=== PATIENT | female | born 1975 | race Two or more races ===

== ENCOUNTER 2024-01-29 19:32 | Inpatient (IN) | payer MEDICAID, OTHER ==
[~2024-01-29] VITALS: Ht 160 cm; Wt 64.4 kg
[2024-01-29 20:07] LABS: Basophils # (auto) 0 10 ^3/uL (0-0.2); Basophils % (auto) 0.3 % (0.0-2.0); Eosinophils # (auto) 0 10 ^3/uL (0-0.8); Eosinophils % (auto) 0.2 % (0.0-7.0); Hematocrit 38.6 % (36.0-46.0); Hemoglobin 12.8 g/dL (12.2-16.2); Lymphocytes # (auto) 2.5 10 ^3/uL (0.4-5.4); Lymphocytes % (auto) 33.1 % (10.0-50.0); Mean Corpuscular Hemoglobin 30.3 pg (28.0-32.0); Mean Corpuscular Hgb Conc. 33.2 g/dL (32.0-36.0); Mean Corpuscular Volume 91.3 fL (80.0-100.0); Monocytes # (auto) 0.4 10 ^3/uL (0-1.3); Monocytes % (auto) 5.6 % (0.0-12.0); Neutrophils # (auto) 4.6 10 ^3/uL (1.6-8.6); Neutrophils % (auto) 60.8 % (37.0-80.0); Nucleated Red Blood Cells % 0.1 %; Platelet Count (auto) 358 10^3/uL (140-450); Red Blood Cells 4.23 10^6/uL (4.0-5.20); Red Cell Distribution Width 13.2 % (11.8-14.3); White Blood Cell 7.6 10^3/uL (4.4-10.8)
--- NOTE | 2024-01-29 20:13 | ED.PDOC ---
HPI Comments Past medical history: Past surgical history: Vitals: BP: 153/74 HR: 86 Temp: 99.3 F RR: 15 SPO2: 99% RA HPI: Poor Historian. 48-year-old female presents to emergency department for midsternal chest pain nonradiating with the associated mild shortness of breath. Onset of symptoms today. No alleviating or precipitating factors. Incidentally, patient is status post upper thoracic epidural injection on Monday by pain management for bilateral upper extremity weakness and numbness that is chronic in nature. Patient complains that since her procedure/injection she has been having some back stiffness and decreased range of motion of rotation of the upper torso. Denies any headache or photophobia or neck pain. REVIEW OF SYSTEMS: CONSTITUTIONAL: Denies acute: fever, diaphoresis, chills, generalized weakness. HEAD: Denies acute: headache, photophobia Eyes: Denies acute: Double vision, vision loss, eye pain, eye discharge. EARS: Denies acute: tinnitus, hearing loss, ear discharge, ear pain, THROAT: Denies acute: sore throat, swelling, difficulty swallowing , pain with swallowing, change in voice. NECK: Denies acute: neck pain, neck swelling, stiff neck. HEART: Denies acute : palpitations, LUNGS: Denies acute: wheezing, cough, hemoptysis ABDOMEN: Denies acute: abdominal pain, Nausea, Vomiting, diarrhea, melena , hematemesis, hematochezia SKIN: Denies acute: rash, redness, lesions, itchiness. EXTREMITIES: Denies acute: calf pain, numbness, tingling, weakness, denies pain in extremity. Denies acute: Low back pain. Neuro: Denies acute: focal neurological deficit, motor or sensory focal neurological deficit, tremors, seizure like activity, confusion, dizziness, change in mental status, loss of bowel or bladder function, cauda equina like symptoms. : Denies acute: dysuria, hematuria, flank pain, increase in urinary frequency. PSYCH: Denies acute: hallucination, suicidal ideation, homicidal ideation. FEMALE: Denies acute: abnormal vaginal bleeding, foul odor, unusual discharge. PHYSICAL EXAM: General: no acute distress, awake and alert. Head: normocephalic, atraumatic. Neck: supple, trachea is midline, no swelling. Throat: Normal phonation. Eyes:, no erythema, no purulent discharge, no proptosis, no icterus. Heart: regular rate, regular rhythm, no significant murmur appreciated. Lungs: no apparent respiratory distress, Able to speak in full sentences. No wheezing, no rhonchi, no crackles. No stridors Clear to auscultation bilaterally. Abdomen: non tender to palpation, non distended, soft, no guarding, no rebound, + bowel sounds. Neuro: Awake, Alert, oriented to name, self, situation, follows commands GCS=15. Speech is normal. Skin: no petechia, no purpura, no cyanosis, non-pale, not jaundice. Lower extremities: --no - Pitting edema no deformity, no focal swelling, no calf TTP. Makes eye contact. moves all four extremities. Face: no apparent facial droop. Ambulating in the ED independently. Chief Complaint: Chest Pain Time Seen by MD: 20:12 Reviewed Notes: Nurses Notes, Allergies Allergies: Coded Allergies: Morphine (Verified Allergy, Unknown, 01/29/24) Information Source: Patient Mode of Arrival: Ambulatory Was a procedure done? Was a procedure done?: No CP Differential Dx Differential Diagnosis: N/A Differential Diagnosis: Angina, Chest Wall Pain, Gastritis, Myocardial Infarction, Pericarditis X-Ray, Labs, Meds, VS Vital Signs Date Time Temp Pulse Resp B/P (MAP) Pulse Ox O2 Delivery O2 Flow Rate FiO2 01/29/24 23:16 80 01/29/24 21:05 82 01/29/24 19:39 99.3 86 15 153/74 (100) 99 01/29/24 19:37 88 Lab Test 01/29/24 20:42 01/29/24 19:46 Range/Units Troponin I High Sensitivity < 3 L < 3 L </=34 ng/L Triglycerides Level 98 < 150 mg/dL Cholesterol Level 164 < 200 mg/dL LDL Cholesterol 96 < 100 mg/dL HDL Cholesterol 54 40-59 mg/dL Thyroid Stimulating Hormone (TSH) 2.74 0.55-4.78 uIU/mL White Blood Count 7.6 4.4-10.8 10^3/uL Red Blood Count 4.23 4.0-5.20 10^6/uL Hemoglobin 12.8 12.2-16.2 g/dL Hematocrit 38.6 36.0-46.0 % Mean Corpuscular Volume 91.3 80.0-100.0 fL Mean Corpuscular Hemoglobin 30.3 28.0-32.0 pg Mean Corpuscular Hemoglobin Concent 33.2 32.0-36.0 g/dL Red Cell Distribution Width 13.2 11.8-14.3 % Platelet Count 358 140-450 10^3/uL Mean Platelet Volume 8.2 6.9-10.8 fL Neutrophils (%) (Auto) 60.8 37.0-80.0 % Lymphocytes (%) (Auto) 33.1 10.0-50.0 % Monocytes (%) (Auto) 5.6 0.0-12.0 % Eosinophils (%) (Auto) 0.2 0.0-7.0 % Basophils (%) (Auto) 0.3 0.0-2.0 % Neutrophils # (Auto) 4.6 1.6-8.6 10 ^3/uL Lymphocytes # (Auto) 2.5 0.4-5.4 10 ^3/uL Monocytes # (Auto) 0.4 0-1.3 10 ^3/uL Eosinophils # (Auto) 0 0-0.8 10 ^3/uL Basophils # (Auto) 0 0-0.2 10 ^3/uL Nucleated Red Blood Cells 0.1 % D-Dimer, Quantitative 0.21 0.0-0.49 mg/L FEU Sodium Level 138 136-145 mmol/L Potassium Level 3.7 3.5-5.1 mmol/L Chloride Level 102 98-107 mmol/L Carbon Dioxide Level 29 20-31 mmol/L Anion Gap 7 5-15 Blood Urea Nitrogen 19 9-23 mg/dL Creatinine 0.80 0.550-1.02 mg/dL Glomerular Filtration Rate Calc 91 >90 mL/min BUN/Creatinine Ratio 23.8 H 10.0-20.0 Serum Glucose 175 H 74-106 mg/dL Hemoglobin A1c 6.2 H <5.7 % A1C Calcium Level 11.0 H 8.7-10.4 mg/dL Total Bilirubin 0.3 0.2-1.0 mg/dL Aspartate Amino Transferase (AST) 10 L 13-40 U/L Alanine Aminotransferase (ALT) 17 7-40 U/L Alkaline Phosphatase 68 46-116 U/L Total Protein 7.8 5.7-8.2 g/dL Albumin 5.1 H 3.2-4.8 g/dL Beta HCG, Quantitative 2.0 1.5-4.2 mIU/mL [address] [address] Ph: [phone] DIAGNOSTIC IMAGING Diagnostic Imaging Report : [id number] Signed PATIENT: QUYNH NATION ACCT: [id number] UNIT: [id number] : 1975 LOC: ER ROOM / BED: / AGE / SEX: 48 / F ADM STATUS: REG ER SERVICE 40 ORDERING PHYSICIAN: ALIN JUAREZ DO PROCEDURE(s): CXRP - CHEST PORTABLE REASON: cp/ ORDER NUMBER(s): [id number], ACCESSION NUMBER(s): [id number] EXAM: XY CHEST PORTABLE TECHNIQUE: Single frontal chest radiograph CLINICAL HISTORY: cp/ COMPARISON: None Findings/Impression: Frontal chest radiograph demonstrates no acute osseous or superficial soft tissue abnormalities. The trachea is midline. The cardiac silhouette and mediastinum are within normal limits. No pneumothorax, pleural effusions, or consolidations. ATED BY: LEYLA MEDRANO DO DICTATED DATE/TIME: 01/29/242053 SIGNED BY: LEYLA MEDRANO DO SIGNED DATE/TIME: 01/29/242053 CC: [place] [id number] Ph: [phone] DIAGNOSTIC IMAGING Diagnostic Imaging Report : [id number] Signed PATIENT: EMMETT NATIONCCT: [id number] UNIT: [id number] : 1975 LOC: ER ROOM / BED: / AGE / SEX: 48 / F ADM STATUS: REG ER SERVICE 58 ORDERING PHYSICIAN: ALIN JUAREZ DO PROCEDURE(s): TS1CT - CT T SPINE WITH CONTRAST REASON: post epidural pain ORDER NUMBER(s): [id number], ACCESSION NUMBER(s): [id number] CT OF THE THORACIC SPINE WITH CONTRAST HISTORY: post epidural pain COMPARISON: None TECHNIQUE: Axial images through the thoracic spine were obtained with intravenous contrast. Coronal and sagittal reformats were obtained. One or more of the following radiation dose reduction techniques were used for this examination: automated exposure control, adjustment of the mA and/or kV according to patient size, use of iterative reconstruction technique. Findings and impression: No grossly displaced fractures, subluxations or bony destructive changes identified. The bony spinal canal is grossly patent. Vertebral body heights appear maintained. Alignment is relatively preserved. Perivertebral soft tissues appear within normal limits. If there is persistent clinical concern, MRI may be obtained to further evaluate. ATED BY: JAGDISH WOLFF MD DICTATED DATE/TIME: 01/29/242306 SIGNED BY: JAGDISH WOLFF MD SIGNED DATE/TIME: 01/29/242306 Time of 1ST Reevaluation: 20:12 Reevaluation 1ST: Unchanged Patient Education/Counseling: Diagnosis, Treatment, Prognosis Family Education/Counseling: No Family Present Departure 1 Departure Time of Disposition: 22:36 Impression: Primary Impression: Chest pain Disposition: ADMITTED INPATIENT Admit to: [facility] Condition: Guarded Discharged With: Self Critical Care Note Critical Care Time?: No I personally scribed for ALIN JUAREZ DO ([email or web address]) on 01/29/24 at 20:13. Electronically submitted by Christal Brown ([facility]). I personally scribed for ALIN JUAREZ DO ([email or web address]) on 01/29/24 at 21:58. Electronically submitted by Christal Brown ([facility]). I personally scribed for ALIN JUAREZ DO ([email or web address]) on 01/30/24 at 02:35. Electronically submitted by Rafael Parekh ([email or web address]). ALIN JUAREZ DO Jan 29, 2024 20:13
[2024-01-29 20:27] LABS: Alanine Aminotransferase 17 U/L (7-40); Alkaline Phosphatase 68 U/L (46-116); Anion Gap 7 (5-15); BUN/Creatinine Ratio 23.8 (10.0-20.0); Blood Urea Nitrogen 19 mg/dL (9-23); Carbon Dioxide 29 mmol/L (20-31); Chloride 102 mmol/L (98-107); Potassium 3.7 mmol/L (3.5-5.1); Sodium 138 mmol/L (136-145); Total Protein 7.8 g/dL (5.7-8.2)
[2024-01-29 20:30] LABS: Albumin 5.1 g/dL (3.2-4.8); Aspartate Aminotransferase 10 U/L (13-40); Bilirubin, Total 0.3 mg/dL (0.2-1.0); Glucose 175 mg/dL (74-106)
--- NOTE | 2024-01-29 20:56 | DVH ---
EXAM: XY CHEST PORTABLE TECHNIQUE: Single frontal chest radiograph CLINICAL HISTORY: cp/ COMPARISON: None Findings/Impression: Frontal chest radiograph demonstrates no acute osseous or superficial soft tissue abnormalities. The trachea is midline. The cardiac silhouette and mediastinum are within normal limits. No pneumothorax, pleural effusions, or consolidations.
--- NOTE | 2024-01-29 23:10 | DVH ---
CT OF THE THORACIC SPINE WITH CONTRAST HISTORY: post epidural pain COMPARISON: None TECHNIQUE: Axial images through the thoracic spine were obtained with intravenous contrast. Coronal a nd sagittal reformats were obtained. One or more of the following radiation dose reduction techniques were used for this examination: automated exposure control, adjustment of the mA and/or kV according to patient size, use of iterative reconstruction technique. Findings and impression: No grossly displaced fractures, subluxations or bony destructive changes identified. The bony spinal canal is grossly patent. Vertebral body heights appear maintained. Alignment is relatively preserve d. Perivertebral soft tissues appear within normal limits. If there is persistent clinical concern, MRI may be obtained to further evaluate.
[2024-01-30] MEDS: ACETAMINOPHEN 325 MG TAB PO ONE (00:45)
[2024-01-30] MEDS ORDERED: DEXTROSE (50%) 50ML SYRG IV PRN (00:45)
[2024-01-30] MEDS: ASPirin 81 mg TAB PO ONE (00:45)
--- NOTE | 2024-01-30 00:56 | DVHHPRES ---
History of Present Illness Resident Creating Document: JOSE HONEYCUTT RESIDENT History of Present Illness Patient is a 48 y/o female with a past medical history of T2DM, hypertriglyceridemia, carpel tunnel syndrome came to the ED with the chief complaint of chest pain and neck stiffness. Patient reported that yesterday she went for a walk and started to have chest pain, substernal, pressure like in character with episodes of sharp stabbing pain, exacerbated with walking and relieved on rest, radiation to left arm, took motrin after which the patient had some relief, associated with shortness of breath, but denied palpitations, no association with taking deep breath or movement. Patient reports that on Monday she got an epidural injection in the pain management clinic because of neuropathic pain and numbness in her hands (h/o carpal tunnel syndrome) following which she had neck stiffness and pain going down from her neck to hands and complete numbness with no sensation which eventually improved but her neck is still stiff and has pain on movement. No weakness in legs, no dizziness, no loss of consciousness. Past medical history: Type 2 diabetes mellitus, hypertriglyceridemia, carpal tunnel syndrome Past Surgical history: Surgery for carpal tunnel syndrome on both hands, emergency laparotomy for ectopic , hysterectomy, appendectomy Social history: Patient denies smoking, alcohol, drug use Home medication: metformin 500mg b.i.d., fenofibrate 160 mg once daily, simvastatin 10 mg once daily, rybelsus 7mg once daily, amytryptiline 10mg once daily, pregababalin 75mg once daily Family History: None Review of Systems Review of Systems Patient is seen and examined at bedside Alert and oriented to time, place and person Has neck stiffness with pain on movement in all directions and decreased ROM reports that she feels mild chest discomfort no shortness of breath She complains of a headache 6-7/10 in intensity denies nausea, vomiting, blurry vision, dizziness Allergies: Coded Allergies: Morphine (Verified Allergy, Unknown, 01/29/24) Medications Current Medications Medications Dose Ordered Sig/Jennifer Route Start Time Stop Time Status Last Admin Dose Admin Diagnostic Test (Pha) 1 strip ACHS 01/30/24 07:00 UNV Insulin Human Regular ACHS SC 01/30/24 07:00 UNV Dextrose 50 ml UD PRN IV 01/30/24 00:45 UNV Exam Vital Signs Vital Signs Date Time Temp Pulse Resp B/P (MAP) Pulse Ox O2 Delivery O2 Flow Rate FiO2 01/29/24 23:16 80 01/29/24 19:39 99.3 15 153/74 (100) 99 Exam Physical Examination Gen - no pallor, no icterus, no cyanosis, no clubbing, no LAD, no edema Skin - Patients skin is warm and dry. HEENT - normocephalic, atraumatic, dry mucous membranes. Neck - ROM decreased in all directions, no LAD, no JVD Pulmonary - B/L vesicular breath sounds , no crackles, no wheezing. cardiovascular - normal S1,S2 heard. no murmurs heard. peripheral pulses normal radial 2+, pedal 2+. GI - soft abdomen. no tenderness. no hepatospleenomegaly. Bowel sounds normoactive Neurological - Patient is A/O X 3. Bilateral upper extremity strength 4/5, bilateral lower extremity strength 5/5, no facial droop, normal speech, no tremor, no sensory deficits Extremities- Not able to lift arms above 90degrees Labs/Xrays Labs Test 01/29/24 20:42 01/29/24 19:46 Range/Units Troponin I High Sensitivity < 3 L </=34 ng/L White Blood Count 7.6 4.4-10.8 10^3/uL Red Blood Count 4.23 4.0-5.20 10^6/uL Hemoglobin 12.8 12.2-16.2 g/dL Hematocrit 38.6 36.0-46.0 % Mean Corpuscular Volume 91.3 80.0-100.0 fL Mean Corpuscular Hemoglobin 30.3 28.0-32.0 pg Mean Corpuscular Hemoglobin Concent 33.2 32.0-36.0 g/dL Red Cell Distribution Width 13.2 11.8-14.3 % Platelet Count 358 140-450 10^3/uL Mean Platelet Volume 8.2 6.9-10.8 fL Neutrophils (%) (Auto) 60.8 37.0-80.0 % Lymphocytes (%) (Auto) 33.1 10.0-50.0 % Monocytes (%) (Auto) 5.6 0.0-12.0 % Eosinophils (%) (Auto) 0.2 0.0-7.0 % Basophils (%) (Auto) 0.3 0.0-2.0 % Neutrophils # (Auto) 4.6 1.6-8.6 10 ^3/uL Lymphocytes # (Auto) 2.5 0.4-5.4 10 ^3/uL Monocytes # (Auto) 0.4 0-1.3 10 ^3/uL Eosinophils # (Auto) 0 0-0.8 10 ^3/uL Basophils # (Auto) 0 0-0.2 10 ^3/uL Nucleated Red Blood Cells 0.1 % D-Dimer, Quantitative 0.21 0.0-0.49 mg/L FEU Sodium Level 138 136-145 mmol/L Potassium Level 3.7 3.5-5.1 mmol/L Chloride Level 102 98-107 mmol/L Carbon Dioxide Level 29 20-31 mmol/L Anion Gap 7 5-15 Blood Urea Nitrogen 19 9-23 mg/dL Creatinine 0.80 0.550-1.02 mg/dL Glomerular Filtration Rate Calc 91 >90 mL/min BUN/Creatinine Ratio 23.8 H 10.0-20.0 Serum Glucose 175 H 74-106 mg/dL Calcium Level 11.0 H 8.7-10.4 mg/dL Total Bilirubin 0.3 0.2-1.0 mg/dL Aspartate Amino Transferase (AST) 10 L 13-40 U/L Alanine Aminotransferase (ALT) 17 7-40 U/L Alkaline Phosphatase 68 46-116 U/L Total Protein 7.8 5.7-8.2 g/dL Albumin 5.1 H 3.2-4.8 g/dL Beta HCG, Quantitative 2.0 1.5-4.2 mIU/mL Assessment/Plan Assessment/Plan Assessment and Plan # Acute Chest Pain # r/o ACS # ?Costochondritis # GERD - 12 lead EKG shows sinus rhythm , no acute ST changes - Troponin levels under normal limits - Aspirin 81 mg daily - atorvastatin 40mg daily - famotidine 20 mg IV - nitroglycerin prn for chest pain - norco prn for pain # Neck pain, r/o cervical radiculopathy # H/o Carpel tunnel syndrome s/p surgery both hands - H/o epidural analgesia 3 days ago - CT Thoracic spine with contrast shows no grossly displaced fractures, subluxations or bony destructive changes identified. The bony spinal canal is grossly patent. Vertebral body heights appear maintained. Alignment is relatively preserved. Perivertebral soft tissues appear within normal limits. - continued pregabalin 75mg qd # Uncontrolled T2DM - on Mild ISS # H/o dyslipidemia - on atorvastatin 40 mg hs # Hypercalcemia, mild - Serum PTH pending Goals of care discusses with the patient for over 25 mins. Plan discussed with Plan discussed with: Patient My Orders Orders - JOSE HONEYCUTT Procedure Category Date Status Time Drug Screen LAB 01/30/24 Logged 00:31 Hemoglobin A1c LAB 01/30/24 Logged 00:31 Lipid Panel LAB 01/30/24 Logged 00:31 Thyroid Stimulating LAB 01/30/24 Logged Hormone 00:31 Covid19 Antigen Samina LAB 01/30/24 Logged Rapid Influenza A&B LAB 01/30/24 Logged 00:31 Famotidine Injection PHA 01/30/24 Logged (Pepcid Injection) 00:45 Aspirin Tablet PHA 01/30/24 Logged 00:45 Glucose Blood PHA 01/30/24 Logged (Accu-Chek Comfort 07:00 Insulin R (Human) PHA 01/30/24 Logged (Insulin R) 07:00 Dextrose 50% Syringe PHA 01/30/24 Logged 00:45 Consistent DIET 01/30/24 Transmitted Carb(Ccho)Diabetes Breakfast Atorvastatin (Lipitor) PHA 01/30/24 Logged 00:45 Pregabalin Capsule PHA 01/30/24 Logged (Lyrica Capsule) 00:45 Acetaminophen Tablet PHA 01/30/24 Logged (Tylenol Tablet) 00:45 Date of Service: Jan 30, 2024 Billing Provider: THOMAS MARTINEZ MD Common Visit Codes: 84506-[id number] INP/OBS CARE (HIGH) JOSE HONEYCUTT RESIDENT Jan 30, 2024 00:56 THOMAS MARTINEZ MD Jan 30, 2024 19:22
[2024-01-30] MEDS ORDERED: NITROGLYCERIN 0.4 MG SL TAB SL PRN (01:00)
[2024-01-30 01:44] LABS: Triglycerides 98 mg/dL (< 150)
[2024-01-30 01:45] LABS: LDL Cholesterol 96 mg/dL (< 100)
[2024-01-30 01:46] LABS: Cholesterol 164 mg/dL (< 200); HDL Cholesterol 54 mg/dL (40-59)
[2024-01-30] MEDS: HYDROcodone-ACET 5/325MG TAB PO ONE (01:49)
[2024-01-30] MEDS: IOHEXOL 300 MG/ML 100ML BOTTLE IJ ONE (01:59)
[2024-01-30 02:35] VITALS: PULSE 75; RESP 16; O2SAT 98
[2024-01-30] MEDS: ATORVASTATIN 20 MG TAB PO ONE (02:40)
[2024-01-30] MEDS: FAMOTIDINE (10MG/ML) 2ML VL IV ONE (02:40)
[2024-01-30] MEDS: PREGABALIN CAPSULE 75 MG CAP PO ONE (02:40)
--- NOTE | 2024-01-30 02:59 | ECG ---
[facility] Test Date: 2024-01-29 Test Time: 21:05:36 Pat Name: QUYNH BOLANOS Department: ED Room: 0282T Gender: F Customer Account Representative: SWATHI : 1975 Requested By: ALIN JUAREZ Order Number: [id number] Reading MD: Chandra Wilkins Measurements Intervals [place] Rate: 82 P: 63 [place]: 175 QRS: 41 QRSD: 87 T: 49 QT: 370 QTc: 432 Interpretive Statements Sinus rhythm Electronically Signed On 02-02-2024 10:21:51 PST by Chandra Wilkins Please click the below link to view image of tracing.
--- NOTE | 2024-01-30 03:00 | ECG ---
[facility] Test Date: 2024-01-29 Test Time: 23:16:33 Pat Name: QUYNH BOLANOS Department: ER Room: 0282T Gender: F Ophthalmic Surgeon: SWATHI : 1975 Requested By: ALIN JUAREZ Order Number: [id number] Reading MD: Chandra Wilkins Measurements Intervals [place] Rate: 80 P: 41 [place]: 178 QRS: 23 QRSD: 86 T: 41 QT: 374 QTc: 432 Interpretive Statements Sinus rhythm Electronically Signed On 02-02-2024 10:22:09 PST by Chandra Wilkins Please click the below link to view image of tracing.
[2024-01-30 05:20] LABS: COVID19 ANTIGEN SOFIA FIA NEGATIVE (NEGATIVE); Rapid Influenza A Negative (Negative)
[2024-01-30 05:21] LABS: Rapid Influenza B Positive (Negative)
[2024-01-30 05:47] LABS: Opiate Scree,Urine Neg (NEGATIVE)
[2024-01-30 05:51] LABS: Amphetamine Screen, Urine Neg (NEGATIVE); Barbiturate Scree,Urine Neg (NEGATIVE); Benzodiazephine Screen, Urine Neg (NEGATIVE); Cannabinoid Screen, Urine Neg (NEGATIVE); Cocaine Screen, Urine Neg (NEGATIVE); Phencyclidine Screen, Urine Neg (NEGATIVE)
[2024-01-30 05:58] LABS: Urine Bacteria FEW /hpf (None Seen); Urine Blood Negative /uL (Negative); Urine Clarity Clear (Clear); Urine Color Yellow (Yellow); Urine Mucus FEW (None Seen); Urine Protein, UAD TRACE (Negative); Urine Urobilinogen Normal (Negative); Urine WBC 4 /hpf (0 - 5)
[2024-01-30] MEDS ORDERED: ACETAMINOPHEN 325 MG TAB PO SCH (06:00)
[2024-01-30 06:11] LABS: Chloride 103 mmol/L (98-107); Sodium 137 mmol/L (136-145)
[2024-01-30 06:12] LABS: Anion Gap 7 (5-15); Calcium 10.2 mg/dL (8.7-10.4); Carbon Dioxide 27 mmol/L (20-31)
[2024-01-30 06:17] LABS: BUN/Creatinine Ratio 23.9 (10.0-20.0); Blood Urea Nitrogen 17 mg/dL (9-23)
[2024-01-30 06:30] LABS: Glucose 139 mg/dL (74-106)
[2024-01-30] MEDS: ACCU-CHEK COMFORT CURVE STRIP VI SCH (06:39)
[2024-01-30] MEDS: InsuLIN REG 1unit/0.01ml Soln (100units/ml) SC SCH ×2 (06:40→17:29)
[2024-01-30 07:17] LABS: Urine Specific Gravity > 1.035 (1.001-1.035)
[2024-01-30] MEDS: MORPHINE SULFATE INJ 2 MG/ml SYRG IV PRN (07:55)
[2024-01-30] MEDS ORDERED: ACETAMINOPHEN 325 MG TAB PO PRN (08:00)
[2024-01-30] MEDS: HYDROcodone-ACET 5/325MG TAB PO PRN (08:02)
[2024-01-30 08:07] VITALS: PULSE 74; RESP 15; O2SAT 98
[2024-01-30] MEDS: ASPirin 81 mg TAB PO SCH (09:47)
[2024-01-30] MEDS: PREGABALIN CAPSULE 75 MG CAP PO SCH (09:47)
[2024-01-30] MEDS: OSELTAMIVIR 75 MG CAP PO SCH (09:48)
[2024-01-30] MEDS ORDERED: ATORVASTATIN 20 MG TAB PO SCH (10:00)
--- NOTE | 2024-01-30 10:41 | DVHCONRES ---
Date Seen: Jan 30, 2024 Resident Creating Document: YOSHI LOBO RESIDENT Allergies: Coded Allergies: Morphine (Verified Allergy, Unknown, 01/29/24) Current Medications Current Medications Medications (Trade) Dose Ordered Sig/Jennifer Route PRN Reason Start Time Stop Time Status Last Admin Diagnostic Test (Pha) (Accu-Chek Comfort Curve T) 1 strip ACHS 01/30/24 07:00 01/30/24 06:39 Insulin Human Regular (InsuLIN R) ACHS SC 01/30/24 07:00 01/30/24 06:40 Dextrose 50 ml UD PRN IV Blood Sugar LESS THAN 60 01/30/24 00:45 Nitroglycerin (Ntrostat Sublingual) 0.4 mg Q5MINP PRN SL FOR CHEST PAIN 01/30/24 01:00 Morphine Sulfate 2 mg Q30M PRN IV FOR CHEST PAIN 01/30/24 01:00 Aspirin 81 mg DAILY PO 01/30/24 10:00 01/30/24 09:47 Atorvastatin Calcium (Lipitor) 40 mg DAILY PO 01/30/24 10:00 01/30/24 02:15 DC Acetaminophen/ Hydrocodone Bitart ([place] 5/325MG Tab) 1 tab Q6HP PRN PO MODERATE PAIN (4-6 PAIN SCALE) 01/30/24 06:00 01/30/24 08:02 Acetaminophen (Tylenol Tablet) 650 mg Q6HPRN PO 01/30/24 06:00 01/30/24 07:47 DC Pregabalin (Lyrica Capsule) 75 mg DAILY PO 01/30/24 10:00 01/30/24 09:47 Atorvastatin Calcium (Lipitor) 40 mg HS PO 01/30/24 22:00 Oseltamivir Phosphate (Tamiflu 75MG Capsule) 75 mg Q12HR PO 01/30/24 10:00 02/04/24 09:59 01/30/24 09:48 Acetaminophen (Tylenol Tablet) 650 mg Q6HPRN PRN PO MILD PAIN (1-3 PAIN SCALE) 01/30/24 08:00 Vital Signs Vital Signs Date Time Temp Pulse Resp B/P (MAP) Pulse Ox O2 Delivery O2 Flow Rate FiO2 01/30/24 10:00 81 14 144/85 (104) 98 01/30/24 08:07 Room Air* 0 21 01/30/24 08:06 97.8 97.8 Labs/Diagnostic Data Labs Test 01/30/24 05:30 01/30/24 04:15 01/29/24 20:42 01/29/24 19:46 Range/Units Sodium Level 137 136-145 mmol/L Potassium Level 4.0 3.5-5.1 mmol/L Chloride Level 103 98-107 mmol/L Carbon Dioxide Level 27 20-31 mmol/L Anion Gap 7 5-15 Blood Urea Nitrogen 17 9-23 mg/dL Creatinine 0.71 0.550-1.02 mg/dL Glomerular Filtration Rate Calc 105 >90 mL/min BUN/Creatinine Ratio 23.9 H 10.0-20.0 Serum Glucose 139 H 74-106 mg/dL Calcium Level 10.2 8.7-10.4 mg/dL Parathyroid Hormone (Intact) 27.5 18.4-80.1 pg/mL Urine Color Yellow Yellow Urine Clarity Clear Clear Urine pH 6.0 5.0-9.0 Urine Specific [place] > 1.035 H 1.001-1.035 Urine Protein Trace H Negative Urine Ketones Negative Negative Urine Blood Negative Negative /uL Urine Nitrite Negative Negative Urine Bilirubin Negative Negative Urine Urobilinogen Normal Negative mg/dL Urine Leukocyte Esterase Negative Negative /uL Urine RBC 4 0 - 4 /hpf Urine WBC 4 0 - 5 /hpf Urine Squamous Epithelial Cells Mod <5 /hpf Urine Bacteria Few H None Seen /hpf Urine Mucus Few None Seen Urine Glucose Normal Normal mg/dL Urine Opiates Screen Neg NEGATIVE Urine Fentanyl Screen Neg NEGATIVE Urine Barbiturates Screen Neg NEGATIVE Urine Phencyclidine Screen Neg NEGATIVE Urine Amphetamines Screen Neg NEGATIVE Urine Benzodiazepines Screen Neg NEGATIVE Urine Cocaine Screen Neg NEGATIVE Urine Cannabinoids Screen Neg NEGATIVE Influenza Type A Antigen Negative Negative Influenza Type B Antigen Positive Negative SARS-CoV-2 Antigen (Rapid) Negative NEGATIVE Troponin I High Sensitivity < 3 L </=34 ng/L Triglycerides Level 98 < 150 mg/dL Cholesterol Level 164 < 200 mg/dL LDL Cholesterol 96 < 100 mg/dL HDL Cholesterol 54 40-59 mg/dL Thyroid Stimulating Hormone (TSH) 2.74 0.55-4.78 uIU/mL White Blood Count 7.6 4.4-10.8 10^3/uL Red Blood Count 4.23 4.0-5.20 10^6/uL Hemoglobin 12.8 12.2-16.2 g/dL Hematocrit 38.6 36.0-46.0 % Mean Corpuscular Volume 91.3 80.0-100.0 fL Mean Corpuscular Hemoglobin 30.3 28.0-32.0 pg Mean Corpuscular Hemoglobin Concent 33.2 32.0-36.0 g/dL Red Cell Distribution Width 13.2 11.8-14.3 % Platelet Count 358 140-450 10^3/uL Mean Platelet Volume 8.2 6.9-10.8 fL Neutrophils (%) (Auto) 60.8 37.0-80.0 % Lymphocytes (%) (Auto) 33.1 10.0-50.0 % Monocytes (%) (Auto) 5.6 0.0-12.0 % Eosinophils (%) (Auto) 0.2 0.0-7.0 % Basophils (%) (Auto) 0.3 0.0-2.0 % Neutrophils # (Auto) 4.6 1.6-8.6 10 ^3/uL Lymphocytes # (Auto) 2.5 0.4-5.4 10 ^3/uL Monocytes # (Auto) 0.4 0-1.3 10 ^3/uL Eosinophils # (Auto) 0 0-0.8 10 ^3/uL Basophils # (Auto) 0 0-0.2 10 ^3/uL Nucleated Red Blood Cells 0.1 % D-Dimer, Quantitative 0.21 0.0-0.49 mg/L FEU Hemoglobin A1c 6.2 H <5.7 % A1C Total Bilirubin 0.3 0.2-1.0 mg/dL Aspartate Amino Transferase (AST) 10 L 13-40 U/L Alanine Aminotransferase (ALT) 17 7-40 U/L Alkaline Phosphatase 68 46-116 U/L Total Protein 7.8 5.7-8.2 g/dL Albumin 5.1 H 3.2-4.8 g/dL Beta HCG, Quantitative 2.0 1.5-4.2 mIU/mL YOSHI LOBO RESIDENT Jan 30, 2024 10:41
--- NOTE | 2024-01-30 10:44 | ECG ---
[facility] Test Date: 2024-01-29 Test Time: 19:37:21 Pat Name: QUYNH BOLANOS Department: ER Room: 0282T Gender: F Team Assistant: MARKO : 1975 Requested By: ALIN JUAREZ Order Number: [id number] Reading MD: Chandra Wilkins Measurements Intervals [place] Rate: 88 P: 61 [place]: 173 QRS: 58 QRSD: 85 T: 43 QT: 353 QTc: 427 Interpretive Statements Sinus rhythm Baseline wander in lead(s) II,III,aVR,aVL,aVF,V2,V5,V6 Electronically Signed On 02-02-2024 10:19:28 PST by Chandra Wilkins Please click the below link to view image of tracing.
[2024-01-30 11:58] LABS: Triglycerides 91 mg/dL (< 150)
[2024-01-30 11:59] LABS: LDL Cholesterol 93 mg/dL (< 100)
[2024-01-30 12:00] LABS: Cholesterol 155 mg/dL (< 200); HDL Cholesterol 52 mg/dL (40-59)
--- NOTE | 2024-01-30 14:18 | DVHSR ---
APPROVED REPORT EXAM: Two-dimensional and M-mode echocardiogram with Doppler and color Doppler. Blood Pressure: 144/85 mmHg INDICATION Chest Pain RISK FACTORS Height: 63, Weight: 153 DIMENSIONS LVDd4.3 (3.8-5.7cm)LA (2D)3.4 (1.9-4.0cm)Aortic Root2.9 (2.0-3.7cm) LVDs2.9 (2.5-4.0cm)LA (MM) (1.9-4.0cm)Aortic Cusp Exc1.7 (1.5-2.0cm) EF (%) 60.0 (55-70%)Rt. Atrium3.7 (1.9-4.0cm)Asc. Aorta cm IVSd1.0 (0.7-1.1cm)RV (D) (1.8-2.4cm) PWd1.1 (0.7-1.1cm) Mitral Valve MitralMitral Stenosis E wave0.81m/sMV Mean GR.mmHg A wave0.83m/sMV Peak GR.44mmHg E/A ratio1.02D MVAcm2 DECEL [id number] 1/2 [id number] IVRTmsDop MVA3.91cm2 Aortic Valve Aortic ValveAortic Stenosis V11.18m/Sofiya Mean GR.4mmHg V21.44m/Sofiya Peak GR.8mmHg LVOT Diameter2.0 (1.8-2.4cm)Doppler AVA2.57cm2 Pulmonic Valve V21.02m/s Conclusion Normal left ventricular size and dimension. Normal left ventricular systolic function estimated ejec tion fraction 55%. There is a grade 1 diastolic dysfunction. Normal right ventricular size and dimension. Normal right ventricular systolic function. Normal biatrial size and dimension. Normal aortic valve structure and function. Normal mitral valve structure and function Normal tricuspid valve structure and function. The pulmonary valve is grossly normal. No pericardial effusion.
--- NOTE | 2024-01-30 14:49 | DVHCONRES ---
Date Seen: Jan 30, 2024 Resident Creating Document: YOSHI LOBO RESIDENT Reason for Consultation Chest pain History of Present Illness QUYNH NATION is a 48-year-old female with PMH of type 2 DM, hypertriglyceridemia, carpal tunnel syndrome presented to the ED with the chief complaints of difficulty breathing and chest pain since Monday. Patient reported while walking patient developed chest pressure, substernal, 9/10 intensity, intermittent, radiating to left arm, aggravated by walking and living by rest associated with shortness. Patient reported she denies pain like this before. On my assessment patient denies fever, palpitations, diaphoresis, dizziness, and other acute associated symptoms. Past Medical History Type 2 DM, hypertriglyceridemia, carpal tunnels Past Surgical History Surgery for carpal tunnel syndrome on both hands, emergency laparotomy for ectopic , hysterectomy, appendectomy Family History Reviewed, noncontributory Social History Lives with family. Patient denies smoking, alcohol, drug use Allergies: Coded Allergies: Morphine (Verified Allergy, Unknown, 01/29/24) Current Medications Current Medications Medications (Trade) Dose Ordered Sig/Jenniefr Route PRN Reason Start Time Stop Time Status Last Admin Diagnostic Test (Pha) (Accu-Chek Comfort Curve T) 1 strip ACHS 01/30/24 07:00 01/30/24 11:49 Insulin Human Regular (InsuLIN R) ACHS SC 01/30/24 07:00 01/30/24 12:15 Dextrose 50 ml UD PRN IV Blood Sugar LESS THAN 60 01/30/24 00:45 Nitroglycerin (Ntrostat Sublingual) 0.4 mg Q5MINP PRN SL FOR CHEST PAIN 01/30/24 01:00 Morphine Sulfate 2 mg Q30M PRN IV FOR CHEST PAIN 01/30/24 01:00 Aspirin 81 mg DAILY PO 01/30/24 10:00 01/30/24 09:47 Atorvastatin Calcium (Lipitor) 40 mg DAILY PO 01/30/24 10:00 01/30/24 02:15 DC Acetaminophen/ Hydrocodone Bitart (Jackson 5/325MG Tab) 1 tab Q6HP PRN PO MODERATE PAIN (4-6 PAIN SCALE) 01/30/24 06:00 01/30/24 08:02 Acetaminophen (Tylenol Tablet) 650 mg Q6HPRN PO 01/30/24 06:00 01/30/24 07:47 DC Pregabalin (Lyrica Capsule) 75 mg DAILY PO 01/30/24 10:00 01/30/24 09:47 Atorvastatin Calcium (Lipitor) 40 mg HS PO 01/30/24 22:00 Oseltamivir Phosphate (Tamiflu 75MG Capsule) 75 mg Q12HR PO 01/30/24 10:00 02/04/24 09:59 01/30/24 09:48 Acetaminophen (Tylenol Tablet) 650 mg Q6HPRN PRN PO MILD PAIN (1-3 PAIN SCALE) 01/30/24 08:00 Review of Systems Patient seen and examined at the bedside. Patient reported improvement in her chest pain and difficulty breathing. Vital Signs Vital Signs Date Time Temp Pulse Resp B/P (MAP) Pulse Ox O2 Delivery O2 Flow Rate FiO2 01/30/24 14:00 83 20 127/70 (89) 97 01/30/24 08:07 Room Air* 0 21 01/30/24 08:06 97.8 97.8 Physical Exam General Appearance: Alert, Oriented X3, Cooperative, Mild distress HEENT: Atraumatic, Mucous membranes moist/pink Respiratory: Clear to auscultation, Normal air movement, No added sounds Cardiovascular: Regular rate, Normal S1, Normal S2, No murmurs Abdominal: Active bowel sounds, Soft, no distention, no tenderness Extremities: No edema, Normal pulses, No tenderness/swelling Skin: No Significant rash, except past surgical scars Neuro: Normal speech, sensorimotor deficits none Psych/Mental Status: Mental status NL, Mood NL Nurse was there as sharperone during examination Labs/Diagnostic Data Labs Test 01/30/24 11:46 01/30/24 05:30 01/30/24 04:15 01/29/24 20:42 Range/Units POC Glucose 232 H 70-106 mg/dl Sodium Level 137 136-145 mmol/L Potassium Level 4.0 3.5-5.1 mmol/L Chloride Level 103 98-107 mmol/L Carbon Dioxide Level 27 20-31 mmol/L Anion Gap 7 5-15 Blood Urea Nitrogen 17 9-23 mg/dL Creatinine 0.71 0.550-1.02 mg/dL Glomerular Filtration Rate Calc 105 >90 mL/min BUN/Creatinine Ratio 23.9 H 10.0-20.0 Serum Glucose 139 H 74-106 mg/dL Calcium Level 10.2 8.7-10.4 mg/dL Magnesium Level 2.1 1.6-2.6 mg/dL B-Type Natriuretic Peptide 8.38 0-100 pg/mL Triglycerides Level 91 < 150 mg/dL Cholesterol Level 155 < 200 mg/dL LDL Cholesterol 93 < 100 mg/dL HDL Cholesterol 52 40-59 mg/dL Parathyroid Hormone (Intact) 27.5 18.4-80.1 pg/mL Urine Color Yellow Yellow Urine Clarity Clear Clear Urine pH 6.0 5.0-9.0 Urine Specific [place] > 1.035 H 1.001-1.035 Urine Protein Trace H Negative Urine Ketones Negative Negative Urine Blood Negative Negative /uL Urine Nitrite Negative Negative Urine Bilirubin Negative Negative Urine Urobilinogen Normal Negative mg/dL Urine Leukocyte Esterase Negative Negative /uL Urine RBC 4 0 - 4 /hpf Urine WBC 4 0 - 5 /hpf Urine Squamous Epithelial Cells Mod <5 /hpf Urine Bacteria Few H None Seen /hpf Urine Mucus Few None Seen Urine Glucose Normal Normal mg/dL Urine Opiates Screen Neg NEGATIVE Urine Fentanyl Screen Neg NEGATIVE Urine Barbiturates Screen Neg NEGATIVE Urine Phencyclidine Screen Neg NEGATIVE Urine Amphetamines Screen Neg NEGATIVE Urine Benzodiazepines Screen Neg NEGATIVE Urine Cocaine Screen Neg NEGATIVE Urine Cannabinoids Screen Neg NEGATIVE Influenza Type A Antigen Negative Negative Influenza Type B Antigen Positive Negative SARS-CoV-2 Antigen (Rapid) Negative NEGATIVE Troponin I High Sensitivity < 3 L </=34 ng/L Thyroid Stimulating Hormone (TSH) 2.74 0.55-4.78 uIU/mL Test 01/29/24 19:46 Range/Units White Blood Count 7.6 4.4-10.8 10^3/uL Red Blood Count 4.23 4.0-5.20 10^6/uL Hemoglobin 12.8 12.2-16.2 g/dL Hematocrit 38.6 36.0-46.0 % Mean Corpuscular Volume 91.3 80.0-100.0 fL Mean Corpuscular Hemoglobin 30.3 28.0-32.0 pg Mean Corpuscular Hemoglobin Concent 33.2 32.0-36.0 g/dL Red Cell Distribution Width 13.2 11.8-14.3 % Platelet Count 358 140-450 10^3/uL Mean Platelet Volume 8.2 6.9-10.8 fL Neutrophils (%) (Auto) 60.8 37.0-80.0 % Lymphocytes (%) (Auto) 33.1 10.0-50.0 % Monocytes (%) (Auto) 5.6 0.0-12.0 % Eosinophils (%) (Auto) 0.2 0.0-7.0 % Basophils (%) (Auto) 0.3 0.0-2.0 % Neutrophils # (Auto) 4.6 1.6-8.6 10 ^3/uL Lymphocytes # (Auto) 2.5 0.4-5.4 10 ^3/uL Monocytes # (Auto) 0.4 0-1.3 10 ^3/uL Eosinophils # (Auto) 0 0-0.8 10 ^3/uL Basophils # (Auto) 0 0-0.2 10 ^3/uL Nucleated Red Blood Cells 0.1 % D-Dimer, Quantitative 0.21 0.0-0.49 mg/L FEU Hemoglobin A1c 6.2 H <5.7 % A1C Total Bilirubin 0.3 0.2-1.0 mg/dL Aspartate Amino Transferase (AST) 10 L 13-40 U/L Alanine Aminotransferase (ALT) 17 7-40 U/L Alkaline Phosphatase 68 46-116 U/L Total Protein 7.8 5.7-8.2 g/dL Albumin 5.1 H 3.2-4.8 g/dL Beta HCG, Quantitative 2.0 1.5-4.2 mIU/mL Assessment Acute Chest Pain, Noncardiac likely secondary to influenza Type 2 diabetes mellitus uncontrolled Influenza type B GERD Dyslipidemia Plan/Recommendation We will continue with the following plan/recommendations (Dr. Lopez) -Echocardiogram showed normal LV function with ejection fraction 55% -Continue Lipid-lowering agent Lipitor 40 mg -DC aspirin 81 mg -troponins x3 were negative no reviewed EKG showed no acute change Discussed with Dr. Cantu Given that the patient low risk for CAD (HEART SCORE 2), there is no further cardiac workup indicated at this time, patient may benefit from outpatient follow up with stress test if needed. Thank you for allowing us to care for this patient. Please call with any questions or concerns. Plan discussed with: Patient Visit Coding Cardiology RES Date of Service: Jan 30, 2024 Billing Provider: CONNOR CANTU MD Cardiology Common Codes: [id number] INP/OBS CARE (Mod) YOSHI LOBO RESIDENT Jan 30, 2024 14:49
--- NOTE | 2024-01-30 15:48 | DVHPNRES ---
Progress Note Date Seen: Jan 30, 2024 Resident Creating Document: MICHELL JIANG RESIDENT Medical Necessity Reason Pt with a Central, PICC or Fol: No Subjective Review of Systems 48-year-old female patient with past medical history of type 2 diabetes, hypertriglyceridemia, carpal tunnel syndrome who presented to emergency department with a chief complaint of difficulty breathing and chest pain since Monday. Patient reported while walking patient developed chest pressure is substernal 9/10 intensity, intermittent and radiating to the left arm aggravating my walking and relieving by rest associated with shortness of breath. patient denies similar episodes in the past. Patient reports she underwent an epidural analgesia couple of days ago after which she started developing these symptoms. During my evaluation the patient exacerbates on palpation , patient is unable to turn the head on her sides because of the pain. She denies any other acute symptoms. Review of systems Constitutional: No: Fever, Chills, Sweats, Weakness, Malaise, Other Eyes: No: Pain, Vision change, Conjunctivae inflammation, Eyelid inflammation, Other, Redness ENT: No: Ear pain, Ear discharge, Nose pain, Nose discharge, Nose congestion, Mouth pain, Mouth swelling, Throat pain, Throat swelling, Other Respiratory: No Wheezing, Hemoptysis, Pleuritic Pain, Sputum, Wheezing, Other Cardiovascular: Yes: Chest pain No: Palpitations, Orthopnea, Paroxysmal Noc. Dyspnea, Edema, Lt Headedness, Other Gastrointestinal: No: Nausea, Vomiting, Abdominal Pain, Diarrhea, Constipation, Melena, Hematochezia, Other Musculoskeletal: Yes: Neck pain and chest pain described as pressure-like Neurological:; No: Weakness, Numbness, Incoordination, Change in speech, Confusion, Seizures Objective vital signs Vital Sign Date Time Temp Pulse Resp B/P (MAP) Pulse Ox O2 Delivery O2 Flow Rate FiO2 01/30/24 14:00 83 20 127/70 (89) 97 01/30/24 08:07 Room Air* 0 21 01/30/24 08:06 97.8 97.8 medications Current Medications Medications Dose Ordered Sig/Jennifer Route Start Time Stop Time Status Last Admin Dose Admin Diagnostic Test (Pha) 1 strip ACHS 01/30/24 07:00 01/30/24 11:49 1 STRIP Insulin Human Regular ACHS SC 01/30/24 07:00 01/30/24 12:15 4 UNITS Dextrose 50 ml UD PRN IV 01/30/24 00:45 Nitroglycerin 0.4 mg Q5MINP PRN SL 01/30/24 01:00 Morphine Sulfate 2 mg Q30M PRN IV 01/30/24 01:00 Aspirin 81 mg DAILY PO 01/30/24 10:00 01/30/24 09:47 81 MG Acetaminophen/ Hydrocodone Bitart 1 tab Q6HP PRN PO 01/30/24 06:00 01/30/24 08:02 1 TAB Pregabalin 75 mg DAILY PO 01/30/24 10:00 01/30/24 09:47 75 MG Atorvastatin Calcium 40 mg HS PO 01/30/24 22:00 Oseltamivir Phosphate 75 mg Q12HR PO 01/30/24 10:00 02/04/24 09:59 01/30/24 09:48 75 MG Acetaminophen 650 mg Q6HPRN PRN PO 01/30/24 08:00 Examination Examination General Appearance: Alert, Oriented X3, Cooperative, No acute distress HEENT: EOMI Respiratory: Clear to auscultation, Normal air movement Cardiovascular: Regular rate, Normal S1, Normal S2 Abdominal: Normal bowel sounds Extremities: No cyanosis, No edema, Normal pulses, No tenderness/swelling Skin: No rashes, No breakdown Neuro: Normal gait, Normal speech, Strength at 5/5 X4 ext, Normal tone, Sensation intact, Cranial nerves 3-12 NL, Reflexes 2+ Psych/Mental Status: Mental status NL, Mood NL laboratory and microbiology Laboratory Tests 01/30/24 05:30 01/29/24 19:46 Test 01/30/24 05:30 Range/Units Serum Glucose 139 H 74-106 mg/dL Problem List/Assessment/Plan Problem List/Assessment/Plan Acute Chest Pain, ruled out ACS -cardiology consultation - cardiogram showed normal left ventricular function with the ejection fraction 50% -chest pain protocol -Aggressive recent factor modification -Low risk for CAD patient may benefit from outpatient follow-up Type 2 diabetes mellitus uncontrolled - mild scale insulin protocol Influenza type B - oseltamivir GERD - continue home meds DyslipidemiaOne - continue atorvastatin 40 mg p.o. History of carpal tunnel syndrome -follow-up with primary care doctor Case discussed with Dr. Ribera Goals of care discussed with the patient for 31 minutes Code status: Full code Plan discussed with: Patient Date of Service: Jan 30, 2024 Billing Provider: VENECIA RIBERA MD Common Visit Codes: [id number] INP/OBS CARE(HIGH) Secondary Visit Codes: [id number] CARE PLAN 30 MINUTES MICHELL JIANG RESIDENT Jan 30, 2024 15:48 VENECIA RIBERA MD Jan 30, 2024 19:37
[2024-01-30 20:00] VITALS: PULSE 84; RESP 16; O2SAT 96
[2024-01-30 21:00] VITALS: BP 120/72; PULSE 82; RESP 16; TEMP 98.8; O2SAT 96
[2024-01-30] MEDS: ATORVASTATIN 20 MG TAB PO SCH (21:26)
[2024-01-31 01:00] VITALS: BP 110/65; PULSE 70; RESP 17; TEMP 98.2; O2SAT 97
[2024-01-31 05:00] VITALS: BP 99/56; PULSE 69; RESP 18; TEMP 98; O2SAT 97
[2024-01-31 07:54] LABS: Chloride 104 mmol/L (98-107); Sodium 140 mmol/L (136-145)
[2024-01-31 07:55] LABS: Anion Gap 6 (5-15); Carbon Dioxide 30 mmol/L (20-31)
[2024-01-31 07:59] LABS: Calcium 10.5 mg/dL (8.7-10.4)
[2024-01-31 08:00] VITALS: PULSE 86; PULSE 88
[2024-01-31 08:00] LABS: BUN/Creatinine Ratio 17.6 (10.0-20.0); Blood Urea Nitrogen 13 mg/dL (9-23)
[2024-01-31 08:07] LABS: Glucose 123 mg/dL (74-106)
[2024-01-31 09:40] VITALS: BP 112/65; PULSE 75; RESP 18; TEMP 97.7; O2SAT 98
[2024-01-31] MEDS ORDERED: OSEL75CA5 PO (11:53)
--- NOTE | 2024-01-31 16:48 | DVHDSRES ---
Discharge Summary Date of Admission Resident Creating Document: MICHELL JIANG RESIDENT Jan 30, 2024 at 00:56 Date of Discharge: Jan 31, 2024 Admitting Diagnosis Chest pain rule out ACS Labs/Diagnostic Data: Laboratory Results Test 01/31/24 07:20 01/31/24 06:38 01/30/24 05:30 01/30/24 04:15 Sodium Level 140 mmol/L (136-145) Potassium Level 4.0 mmol/L (3.5-5.1) Chloride Level 104 mmol/L (98-107) Carbon Dioxide Level 30 mmol/L (20-31) Anion Gap 6 (5-15) Blood Urea Nitrogen 13 mg/dL (9-23) Creatinine 0.74 mg/dL (0.550-1.02) Glomerular Filtration Rate Calc 100 mL/min (>90) BUN/Creatinine Ratio 17.6 (10.0-20.0) Serum Glucose 123 mg/dL (74-106) Calcium Level 10.5 mg/dL (8.7-10.4) POC Glucose 137 mg/dl (70-106) Magnesium Level 2.1 mg/dL (1.6-2.6) B-Type Natriuretic Peptide 8.38 pg/mL (0-100) Triglycerides Level 91 mg/dL (< 150) Cholesterol Level 155 mg/dL (< 200) LDL Cholesterol 93 mg/dL (< 100) HDL Cholesterol 52 mg/dL (40-59) Parathyroid Hormone (Intact) 27.5 pg/mL (18.4-80.1) Urine Color Yellow (Yellow) Urine Clarity Clear (Clear) Urine pH 6.0 (5.0-9.0) Urine Specific [place] > 1.035 (1.001-1.035) Urine Protein Trace (Negative) Urine Ketones Negative (Negative) Urine Blood Negative /uL (Negative) Urine Nitrite Negative (Negative) Urine Bilirubin Negative (Negative) Urine Urobilinogen Normal mg/dL (Negative) Urine Leukocyte Esterase Negative /uL (Negative) Urine RBC 4 /hpf (0 - 4) Urine WBC 4 /hpf (0 - 5) Urine Squamous Epithelial Cells Mod /hpf (<5) Urine Bacteria Few /hpf (None Seen) Urine Mucus Few (None Seen) Urine Glucose Normal mg/dL (Normal) Urine Opiates Screen Neg (NEGATIVE) Urine Fentanyl Screen Neg (NEGATIVE) Urine Barbiturates Screen Neg (NEGATIVE) Urine Phencyclidine Screen Neg (NEGATIVE) Urine Amphetamines Screen Neg (NEGATIVE) Urine Benzodiazepines Screen Neg (NEGATIVE) Urine Cocaine Screen Neg (NEGATIVE) Urine Cannabinoids Screen Neg (NEGATIVE) Influenza Type A Antigen Negative (Negative) Influenza Type B Antigen Positive (Negative) SARS-CoV-2 Antigen (Rapid) Negative (NEGATIVE) Test 01/29/24 20:42 01/29/24 19:46 Troponin I High Sensitivity < 3 ng/L (</=34) Thyroid Stimulating Hormone (TSH) 2.74 uIU/mL (0.55-4.78) White Blood Count 7.6 10^3/uL (4.4-10.8) Red Blood Count 4.23 10^6/uL (4.0-5.20) Hemoglobin 12.8 g/dL (12.2-16.2) Hematocrit 38.6 % (36.0-46.0) Mean Corpuscular Volume 91.3 fL (80.0-100.0) Mean Corpuscular Hemoglobin 30.3 pg (28.0-32.0) Mean Corpuscular Hemoglobin Concent 33.2 g/dL (32.0-36.0) Red Cell Distribution Width 13.2 % (11.8-14.3) Platelet Count 358 10^3/uL (140-450) Mean Platelet Volume 8.2 fL (6.9-10.8) Neutrophils (%) (Auto) 60.8 % (37.0-80.0) Lymphocytes (%) (Auto) 33.1 % (10.0-50.0) Monocytes (%) (Auto) 5.6 % (0.0-12.0) Eosinophils (%) (Auto) 0.2 % (0.0-7.0) Basophils (%) (Auto) 0.3 % (0.0-2.0) Neutrophils # (Auto) 4.6 10 ^3/uL (1.6-8.6) Lymphocytes # (Auto) 2.5 10 ^3/uL (0.4-5.4) Monocytes # (Auto) 0.4 10 ^3/uL (0-1.3) Eosinophils # (Auto) 0 10 ^3/uL (0-0.8) Basophils # (Auto) 0 10 ^3/uL (0-0.2) Nucleated Red Blood Cells 0.1 % D-Dimer, Quantitative 0.21 mg/L FEU (0.0-0.49) Hemoglobin A1c 6.2 % A1C (<5.7) Total Bilirubin 0.3 mg/dL (0.2-1.0) Aspartate Amino Transferase (AST) 10 U/L (13-40) Alanine Aminotransferase (ALT) 17 U/L (7-40) Alkaline Phosphatase 68 U/L (46-116) Total Protein 7.8 g/dL (5.7-8.2) Albumin 5.1 g/dL (3.2-4.8) Beta HCG, Quantitative 2.0 mIU/mL (1.5-4.2) Other Laboratory Tests 01/31/24 07:20 01/29/24 19:46 Brief Hx & Hospital Course: HPI: 48-year-old female patient with past medical history of type 2 diabetes, carpal tunnelome who came to the emergency department with a chief complaint of neck stiffness and chest pain that was described as substernal, pressure-like in character with the episode of sharp stabbing pain exacerbated with walking and relieved on rest addition to the left arm for which the patient took pain medication and had some relief these episodes were associated with shortness of breath but denies palpitations or any other complaint. Per patient, thus far she got an epidural injection the pain management clinic because of neuropathic pain and numbness in her hands because of the history of carpal tunnel syndrome following which she had neck stiffness and pain that went down from the neck to the chest. Hospital course: Patient was evaluated by Cardiology, troponin levels were negative, EKG was normal and after the evaluation the possible diagnosis of acute coronary syndrome was ruled out. During hospitalization the patient was diagnosed with influenza type B for which she was started on oseltamivir but the patient remains asymptomatic during the entire hospitalization. Chest x-rays and spine CT were unremarkable Hemoglobin A1c was 10.5% for which the patient was advised to continue insulin treatment and improved dietary habits and physical activity. Disposition: Patient was stable for discharge, she was discharged to home with the following recommendations to follow-up with primary care doctor within 1-2 weeks. Case discussed with Dr. Ribera Goals of care discussed with the patient for 36 minutes Code status: Full code Operations or Procedures [facility] [id number] [facility] [address] Ph: [phone] DIAGNOSTIC IMAGING Diagnostic Imaging Report : [id number] Signed PATIENT: EMMETT NATIONCCT: [id number] UNIT: [id number] : 1975 LOC: ER ROOM / BED: / AGE / SEX: 48 / F ADM STATUS: REG ER SERVICE 40 ORDERING PHYSICIAN: ALIN JUAREZ DO PROCEDURE(s): CXRP - CHEST PORTABLE REASON: cp/ ORDER NUMBER(s): [id number], ACCESSION NUMBER(s): [id number] EXAM: XY CHEST PORTABLE TECHNIQUE: Single frontal chest radiograph CLINICAL HISTORY: cp/ COMPARISON: None Findings/Impression: Frontal chest radiograph demonstrates no acute osseous or superficial soft tissue abnormalities. The trachea is midline. The cardiac silhouette and mediastinum are within normal limits. No pneumothorax, pleural effusions, or consolidations. ATED BY: LEYLA MEDRANO DO DICTATED DATE/TIME: 01/29/242053 SIGNED BY: LEYLA MEDRANO DO SIGNED DATE/TIME: 01/29/242053 CC: [place] [address] Ph: [phone] DIAGNOSTIC IMAGING Diagnostic Imaging Report : [id number] Signed PATIENT: EMMETT NATIONCCT: [id number] UNIT: [id number] : 1975 LOC: ER ROOM / BED: / AGE / SEX: 48 / F ADM STATUS: REG ER SERVICE 58 ORDERING PHYSICIAN: ALIN JUAREZ DO PROCEDURE(s): TS1CT - CT T SPINE WITH CONTRAST REASON: post epidural pain ORDER NUMBER(s): [id number], ACCESSION NUMBER(s): [id number] CT OF THE THORACIC SPINE WITH CONTRAST HISTORY: post epidural pain COMPARISON: None TECHNIQUE: Axial images through the thoracic spine were obtained with intravenous contrast. Coronal and sagittal reformats were obtained. One or more of the following radiation dose reduction techniques were used for this examination: automated exposure control, adjustment of the mA and/or kV according to patient size, use of iterative reconstruction technique. Findings and impression: No grossly displaced fractures, subluxations or bony destructive changes identified. The bony spinal canal is grossly patent. Vertebral body heights appear maintained. Alignment is relatively preserved. Perivertebral soft tissues appear within normal limits. If there is persistent clinical concern, MRI may be obtained to further evaluate. ATED BY: JAGDISH WOLFF MD DICTATED DATE/TIME: 01/29/242306 SIGNED BY: JAGDISH WOLFF MD SIGNED DATE/TIME: 01/29/242306 CC: Condition at Discharge: Fair Final Diagnosis/Problems List Acute Chest Pain, likely muskuloskeletal, ruled out ACS Type 2 diabetes mellitus uncontrolled Influenza type B GERD Dyslipidemia History of carpal tunnel syndrome Discharge Disposition: Home SNF Discharge Will this Physician continue t: No Discharge Instruct/Medications Diet: Cardiac 2g Na,low cholest Activity: Light activity Follow Up/Referral: Follow up with PCP within 1 to 2 weeks Medications: resume home meds oseltamivir BID PO 7d Discharge Statement: "Patient was advised to return to the ER or call 911 if any headaches, dizziness, shortness of breath, chest pain, abdominal pain, bleeding, fevers, or worsening of medical condition. Patient was counseled about treatment plan, medications, possible side effects, patientverbalized understanding. All questions were answered to the best of my ability. This discharge took greater then 30 minutes in planning, reviewing documentation, counseling the patient, and discussing with other team members." ASSESSMENT ASSESSMENT Assessment influenza type B infection chest pain ruled out ACS type 2 diabetes Date of Service: Jan 31, 2024 Billing Provider: VENECIA RIBERA MD Common Visit Codes: 95472-IPD/OBS DISCH DAY >30min MICHELL JIANG RESIDENT Jan 31, 2024 16:48 VENECIA RIBERA MD Jan 31, 2024 20:24
== END 2024-01-31 10:50 | disposition home or self-care (01) | DRG 203 ==
LOC: ER 19:32 → TELE 01-30 00:56 → TELE-WESTW 01-30 17:48
PROVIDERS: ADMIT Internal Medicine Geriatric Medicine; ATTEND Internal Medicine Geriatric Medicine
DX: R07.89 Other chest pain (principal); E11.9 Type 2 diabetes mellitus without complications; J10.1 Influenza due to other identified influenza virus with other respiratory manifestations; E78.5 Hyperlipidemia, unspecified; K21.9 Gastro-esophageal reflux disease without esophagitis; E83.52 Hypercalcemia; Z20.822 Contact with and (suspected) exposure to COVID-19; Z88.5 Allergy status to narcotic agent; Z90.49 Acquired absence of other specified parts of digestive tract; Z90.710 Acquired absence of both cervix and uterus
CPT/HCPCS: 36415; 71045; 72129; 80048; 80053; 80061; 80307; 81001; 82962; 83036; 83735; 83880; 83970; 84443; 84484; 84702; 85025; 85379; 87426; 87804; 93306; G0378; J1815; J3490